=== PATIENT | female | born 1945 | race Caucasian/White ===

== ENCOUNTER 2025-01-15 00:08 | Emergency (ER) | payer OTHER ==
[~2025-01-15] VITALS: Ht 165.1 cm; Wt 68.0 kg
[2025-01-15 00:59] LABS: BASOPHILS % (AUTO) 0.1 % (0.0-2.0); EOSINOPHILS % (AUTO) 0.1 % (0.0-7.0); HEMATOCRIT 38.9 % (31.2-41.9); HEMOGLOBIN 13.1 g/dL (10.9-14.3); LYMPHOCYTES # (AUTO) 0.5 K/uL (0.8-4.8); LYMPHOCYTES % (AUTO) 8.7 % (20.5-51.5); MEAN CORPUSCULAR HEMOGLOBIN 32.5 uug (24.7-32.8); MEAN CORPUSCULAR HGB CONC 34 g/dL (32.3-35.6); MEAN CORPUSCULAR VOLUME 96.5 fL (75.5-95.3); MONOCYTES # (AUTO) 0.4 K/uL (0.1-1.30); MONOCYTES % (AUTO) 7.5 % (0.0-11.0); NEUTROPHILS # (AUTO) 4.5 K/uL (1.8-8.9); NEUTROPHILS % (AUTO) 83.6 % (38.5-71.5); PLATELET COUNT (AUTO) 89 K/uL (179-408); RED BLOOD CELL COUNT(AUTO) 4.04 MIL/uL (3.63-4.92); RED CELL DISTRIBUTION WIDTH 13.7 % (12.3-17.7); WHITE BLOOD COUNT (AUTO) 5.4 K/uL (3.8-11.8)
[2025-01-15 01:06] LABS: CALCIUM 8.1 mg/dL (8.5-10.1); CARBON DIOXIDE 23 mmol/L (21-32); CHLORIDE 106 mmol/L (98-107); CREATININE 1.1 mg/dL (0.6-1.3); GLUCOSE 133 mg/dL (74-106); POTASSIUM 3.8 mmol/L (3.5-5.1); SODIUM SERUM 137 mmol/L (136-145); UREA NITROGEN, BLOOD 16 mg/dL (7-18)
[2025-01-15 01:07] LABS: DIFFERENTIAL COMMENT 1
[2025-01-15 01:22] LABS: ALANINE AMINOTRANSFERASE 34 U/L (14-59); ALKALINE PHOSPHATASE 75 U/L (50-136); ASPARTATE AMINOTRANSFERASE 26 U/L (15-37); BILIRUBIN,TOTAL 1.2 mg/dL (0.2-1.0); NT-PRO BNP 139 pg/mL (0-125); TOTAL PROTEIN, SERUM 5.8 g/dL (6.4-8.2)
[2025-01-15 01:24] LABS: LYMPHOCYTES % (MANUAL) 11 % (20-40); MONOCYTES % (MANUAL) 6 % (2-10); NEUTROPHILS % (MANUAL) 83 % (42-75)
[2025-01-15 01:25] LABS: ANISOCYTOSIS 1+; PLATELET ESTIMATE MARKED DECREASED
[2025-01-15] MEDS ORDERED: ROSU5TAB13 MT (01:53)
[2025-01-15] MEDS ORDERED: TRAZ-252 MT (01:53)
[2025-01-15] MEDS ORDERED: ALPR0.5T8 MT (01:53)
[2025-01-15] MEDS ORDERED: DORZ10DR11 EACHEYE (01:53)
[2025-01-15] MEDS ORDERED: LEVO88TA5 MT (01:53)
[2025-01-15] MEDS ORDERED: ATEN25TA PO (01:53)
[2025-01-15] MEDS ORDERED: ONDANSETRON 4 MG/2 ML VIAL ONE (02:19)
[2025-01-15] MEDS: ONDANSETRON 4 MG/2 ML VIAL IV ONE (02:23)
[2025-01-15 03:23] VITALS: BP 142/56; TEMP 98; O2SAT 98
== END 2025-01-15 03:23 | disposition home or self-care (01) ==
LOC: ER 00:12
DX: R42 Dizziness and giddiness (principal); R06.02 Shortness of breath; E78.5 Hyperlipidemia, unspecified; Z79.890 Hormone replacement therapy; Z79.899 Other long term (current) drug therapy
CPT/HCPCS: 99285; 96374; 70450; 71045; 80053; 83880; 85007; 85027; 87040; 84484; 36415; 93005; 83605; J2405; 70030-TC; 85025; A4606; A4663